=== PATIENT | male | born 1985 | race Two or more races ===

== ENCOUNTER 2016-09-04 13:25 | Emergency (ER) | payer SELFPAY ==
[2016-09-04 13:35] VITALS: TEMP 98; BMI 36.5
--- NOTE | 2016-09-04 13:54 | PDOC ---
History of Present Illness - General History Source: Patient Exam Limitations: No Limitations - History of Present Illness Initial Comments: 09/04/16 14:06 The patient is a 31 year old male with a significant past medical history of smoking (7-8 cigs/ day), who presents to the ER with intermittent chest pain since 12:30PM. Patient states he had an onset of chest pain while lifting heavy boxes today. He states the pain comes and goes, and is worse on deep inspiration , movement, and on palpation of the left sternocostal margin. Denies shortness of breath, cough Denies recent long distance travel Denies fever, chills, cough Denies lightheadedness <MargaretMarycarmen - Last Filed: 09/04/16 14:21> - General History Source: Patient Exam Limitations: No Limitations <Mikey Givens - Last Filed: 09/04/16 15:16> - General Chief Complaint: Chest Pain Stated Complaint: CHEST PAIN Time Seen by Provider: 09/04/16 13:54 Past History <Marycarmen Robles - Last Filed: 09/04/16 14:21> - Psycho/Social/Smoking Cessation Hx Anxiety: No Suicidal Ideation: No Smoking History: Current every day smoker Have you smoked in the past 12 months: Yes Number of Cigarettes Smoked Daily: 6 Information on smoking cessation initiated: No Hx Alcohol Use: No Drug/Substance Use Hx: No Substance Use Type: None <Mikey Givens - Last Filed: 09/04/16 15:16> - Past Medical History Allergies/Adverse Reactions: Allergies Allergy/AdvReac Type Severity Reaction Status Date / Time No Known Allergies Allergy Verified 09/04/16 13:31 Review of Systems - Review of Systems Able to Perform ROS?: Yes Comments:: 09/04/16 14:06 CONSTITUTIONAL: Absent: fever, no chills, no fatigue EYES: Absent: visual changes ENT: Absent: ear pain, no sore throat CARDIOVASCULAR: Present: (+) chest pain Absent: no palpitations RESPIRATORY: Absent: cough, no SOB GI: Absent: abdominal pain, no nausea, no vomiting, no constipation, no diarrhea GENITOURINARY: Absent: dysuria, no frequency, no hematuria MUSCULOSKELETAL: Absent: back pain, no arthralgia, no myalgia SKIN: Absent: rash NEURO: Absent: headache <Mttrina,Marycarmen - Last Filed: 09/04/16 14:21> *Physical Exam - Vital Signs Last Vital Signs Temp Pulse Resp BP Pulse Ox 98 F 75 18 119/83 100 09/04/16 13:32 09/04/16 13:32 09/04/16 13:32 09/04/16 13:32 09/04/16 13:32 - Physical Exam Comments: 09/04/16 14:07 GENERAL: Well-appearing, well-nourished. No apparent distress. HEENT: Normocephalic, atraumatic. PERRL, EOM intact. CARDIOVASCULAR: Normal S1, S2. Regular rate and rhythm. CHEST WALL: Tenderness to left sternocostal margin PULMONARY: Clear to auscultation bilaterally. ABDOMEN: Soft, non-distended, non-tender. EXTREMITIES: Normal ROM in all four extremities. No gross deformities. SKIN: Warm, dry. No rash NEUROLOGICAL: No focal neurological deficits. <Mttrina,Marycarmen - Last Filed: 09/04/16 14:21> - Vital Signs Last Vital Signs Temp Pulse Resp BP Pulse Ox 98 F 75 18 119/83 100 09/04/16 13:32 09/04/16 13:32 09/04/16 13:32 09/04/16 13:32 09/04/16 13:32 <Mikey Givens - Last Filed: 09/04/16 15:16> Heart Score/ECG Review - History History: Slightly suspicious - Electrocardiogram EKG: Non specific repolarization disturbance - Age Age: </= 43 - Risk Factors Risk Factors Heart Score: Yes Smoking History Based on the list above the patient has:: 1-2 risk factors - Troponin Troponin: </= normal limit - Score Heart Score - Total: 2 - ECG Intrepretation Comment:: 09/04/16 14:04 Normal sinus rhythm at 78, normal axis, normal intervals, inverted T-wave in 3, aVF, no ST changes <Mikey Givens - Last Filed: 09/04/16 15:16> ED Treatment Course - RADIOLOGY Radiograph Interpretation: 09/04/16 14:21 Chest XR impression reported by Dr. Bradshaw: No acute intrathoracic abnormality seen. No pneumothrax or pneumomediastinum identified. <MargaretMarycarmen - Last Filed: 09/04/16 14:21> Medical Decision Making - Medical Decision Making 09/04/16 14:03 The patient is well-appearing and in no acute distress His chest pain seems musculoskeletal It is definitely not constant, and the pain only occurs for seconds, and only with movement, palpation, deep inspiration HEART score is 2 He does, however, have inverted T waves in leads 3 and aVF Will obtain chest x-ray, cardiac profile 09/04/16 14:04 09/04/16 15:15 Symptoms resolved after medications Labs noted with negative CK and troponin He would like to go home, and I feel discharge is appropriate I have referred him to cardiology for further evaluation Clinical impression: Musculoskeletal chest pain, consistent with costochondritis I discussed the physical exam findings, ancillary test results and final diagnoses with the patient. I answered all of the patient's questions. The patient was satisfied with the care received and felt comfortable with the discharge plan and treatment plan. The patient will call their primary care physician within 24 hours to arrange follow-up and will return to the Emergency Department with any new, persistent or worsening symptoms. <Mikey Givens - Last Filed: 09/04/16 15:16> *DC/Admit/Observation/Transfer - Attestations Scribe Attestion: 09/04/16 14:07 Documentation prepared by Marycarmen Robles, acting as medical director for Mikey Givens MD. <Marycarmen Robles - Last Filed: 09/04/16 14:21> <Mikey Givens - Last Filed: 09/04/16 15:16> Diagnosis at time of Disposition: Costochondritis - Discharge Dispostion Disposition: HOME - Referrals Referrals: Edmund Olson MD [Staff Physician] - Call tomorrow (See this game master for further evaluation.) - Patient Instructions Printed Discharge Instructions: DI for Atypical Chest Pain Additional Instructions: Return to the emergency department immediately with ANY new, persistent or worsening symptoms. You MUST call and follow up with your doctor tomorrow. Please make sure your doctor reviews the results of your emergency department evaluation.
[2016-09-04] MEDS ORDERED: IBUPROFEN 400 MG TABLET (FP) PO ONE ×2 (14:25→14:49)
[2016-09-04 14:52] LABS: TROPONIN I < 0.02 ng/ml (0.00-0.05)
[2016-09-04 15:42] VITALS: BP 110/70; PULSE 80
--- NOTE | 2016-09-04 15:47 | EKG ---
Test Reason : Blood Pressure : / mmHG Vent. Rate : 081 BPM Atrial Rate : 081 BPM P-R Int : 134 ms QRS Dur : 080 ms QT Int : 356 ms P-R-T Axes : 012 043 -05 degrees QTc Int : 413 ms NORMAL SINUS RHYTHM WITH SINUS ARRHYTHMIA NORMAL ECG NO PREVIOUS ECGS AVAILABLE Confirmed by ALVIN QUINTANA MD ([id number]) on 09/04/2016 3:46:55 PM Referred By: Confirmed By:ALVIN QUINTANA MD
== END 2016-09-04 15:42 | disposition home or self-care (01) ==
LOC: JER 13:25
DX: M94.0 Chondrocostal junction syndrome [Tietze] (principal); F17.210 Nicotine dependence, cigarettes, uncomplicated
CPT/HCPCS: 36415; 71010-TC; 82550; 82553; 84484; 93005; 93010; 99283-25

== ENCOUNTER 2021-11-30 17:25 | Emergency (ER) | payer OTHER ==
[2021-11-30 17:33] VITALS: BP 139/77; PULSE 72; TEMP 98.4; BMI 41.8
[2021-11-30] MEDS ORDERED: predniSONE 20 MG TABLET (UD) PO ONE (18:51)
[2021-11-30] MEDS ORDERED: valACYclovir HCL 1000 MG TABLET PO ONE (18:52)
== END 2021-11-30 20:08 | disposition home or self-care (01) ==
LOC: JER 17:25
DX: G51.0 Bell's palsy (principal)
CPT/HCPCS: 99283-25

== ENCOUNTER 2022-03-09 09:15 | Emergency (ER) | payer OTHER ==
[2022-03-09 09:34] VITALS: RESP 18; BMI 42.3
[2022-03-09] MEDS ORDERED: SODIUM CHLORIDE 0.9% 500 ML INFUS.BAG IV ONE (09:51)
[2022-03-09] MEDS ORDERED: ACETAMINOPHEN 1000 MG/100 ML BAG IVPB ONE (09:51)
[2022-03-09] MEDS ORDERED: ACETAMINOPHEN INJECTION 100 ML IVPB ONE (10:22)
[2022-03-09 11:05] LABS: URINE APPEARANCE CLEAR; URINE BILIRUBIN NEGATIVE (NEGATIVE); URINE COLOR YELLOW; URINE GLUCOSE (UA) NEGATIVE (NEGATIVE); URINE KETONE TRACE (NEGATIVE); URINE LEUK ESTERASE NEGATIVE (NEGATIVE); URINE NITRITE NEGATIVE (NEGATIVE); URINE PROTEIN NEGATIVE (NEGATIVE)
[2022-03-09 11:24] LABS: CALCIUM 8.8 mg/dL (8.5-10.1)
[2022-03-09 11:25] LABS: ALBUMIN 3.8 g/dl (3.4-5.0); BASO % 0.8 % (0-2.0); BLOOD UREA NITROGEN 15.2 mg/dL (7-18); EOS % 3.4 % (0-4.5); LYMPH % 44.3 % (8-40); MCH 31.1 pg (25.7-33.7); MCHC 32.5 g/dl (32.0-35.9); MEAN CELL VOLUME 95.8 fl (80-96); MEAN PLT VOLUME 9.2 fl (7.5-11.1); NEUT % 39.5 % (42.8-82.8); PLATELET COUNT 191 10^3/uL (134-434); RBC 4.81 M/mm3 (4.00-5.60); RDW 13.7 % (11.9-15.9); WHITE BLOOD COUNT 3.9 K/mm3 (4.0-10.0)
[2022-03-09 11:27] LABS: CREATININE 0.9 mg/dL (0.55-1.3)
[2022-03-09 11:29] LABS: BILIRUBIN,TOTAL 0.2 mg/dL (0.2-1); TOT PROT 7.5 g/dl (6.4-8.2)
[2022-03-09 14:01] VITALS: BP 124/87; PULSE 89; TEMP 98.1
== END 2022-03-09 14:03 | disposition home or self-care (01) ==
LOC: JER 09:15
DX: R10.9 Unspecified abdominal pain (principal)
CPT/HCPCS: 36415; 76705-TC; 80053; 81003; 83690; 85025; 87086; 99284-25

== ENCOUNTER 2023-09-22 06:56 | Emergency (ER) | payer OTHER ==
[2023-09-22 07:07] VITALS: BMI 42.5
[2023-09-22 09:00] LABS: BASO % 1.1 % (0-2.0); EOS % 4.1 % (0-4.5); HEMATOCRIT 42.6 % (35.4-49); HEMOGLOBIN 14.6 GM/dL (11.7-16.9); LYMPH % 41.6 % (8-40); MCH 32.2 pg (25.7-33.7); MCHC 34.3 g/dl (32.0-35.9); MEAN CELL VOLUME 93.6 fl (80-96); MEAN PLT VOLUME 8.7 fl (7.5-11.1); MONO % 12.5 % (3.8-10.2); NEUT % 40.7 % (42.8-82.8); PLATELET COUNT 188 10^3/uL (134-434); RBC 4.55 M/mm3 (4.00-5.60); RDW 13.9 % (11.9-15.9)
[2023-09-22 09:09] LABS: POTASSIUM 4.1 mmol/L (3.5-5.1)
[2023-09-22 09:12] LABS: ALBUMIN 4.1 g/dl (3.4-5.0); BLOOD UREA NITROGEN 12.6 mg/dL (7-18); CALCIUM 9.2 mg/dL (8.5-10.1)
[2023-09-22 09:16] LABS: BILIRUBIN,TOTAL 0.4 mg/dL (0.2-1); CREATININE 0.8 mg/dL (0.55-1.3)
[2023-09-22 09:18] LABS: TOT PROT 7.6 g/dl (6.4-8.2)
[2023-09-22 10:18] VITALS: BP 101/69; PULSE 68; RESP 20; TEMP 98.1
== END 2023-09-22 10:24 | disposition home or self-care (01) ==
LOC: JER 06:56 → JERFT 06:56
DX: R06.02 Shortness of breath (principal); R07.9 Chest pain, unspecified; R05.9 Cough, unspecified; R53.83 Other fatigue; Z20.822 Contact with and (suspected) exposure to COVID-19
CPT/HCPCS: 0241U-QW; 36415; 71046-TC-FY; 80053; 83690; 84484; 85025; 93005; 93010; 99285-25